=== PATIENT | female | born 1970 | race Caucasian/White ===

== ENCOUNTER → 2018-03-17 | Outpatient (CLI) | payer BC ==
--- NOTE | 2018-03-22 08:53 | EEG ---
ELECTROENCEPHALOGRAM REPORT VIDEO ELECTRONYSTAGMOGRAPHIC REPORT: AGE: 47 VNG INDICATIONS: 47-year-old female with vertigo and other dizziness onset December 2017, sudden and improving. She has dizziness spells on a daily basis and generally lasting 30-60 seconds at a time without warning. All of the different positions can trigger the vertigo. The patient denies any hearing loss, but has pressure in the right ear. No tinnitus. Dizziness can be associated with lightheadedness, pressure in the head, nausea and blurred vision. ENG FINDINGS: SPONTANEOUS NYSTAGMUS: SACCADES: Saccades shows intact peak velocities, accuracies and latencies. GAZE TEST: Gaze with fixation shows no nystagmus in any of the directions of gaze including centrally with vision denied. SINUSOIDAL TRACKING: Tracking shows no break-ups at faster speed and some break-ups that source e felt to be outpatient looking around artifact. OKN TEST: @@ NICO-HALLPIKE TEST: Nico-Hallpike maneuvers are not done because patient refused it. POSITION TEST: Static position testing in 6 different positions with the eyes open and then with vision denied shows no significant nystagmus. CALORIC TEST: Caloric testing also not done because the patient refused it. The heating and cooling technician notes: The patient did not want to continue with testing because she was having severe anxiety and claustrophobia just from the goggles being on. Several breaks were taken during testing for same reason. IMPRESSION: This is a limited VNG without calorics or [place]-Hallpike maneuvers due to the patient's anxiety as noted above. Therefore, vestibular apparatus not fully tested. No significant nystagmus was noted on gaze or position testing. There were no central nervous system features. Otherwise unremarkable VNG study. Clinical correlation is advised. MMODL / IJN: [id number] /
== END | disposition home or self-care (01) ==
LOC: NEUROMAIN 06:34
PROVIDERS: ATTEND Otolaryngology
DX: R42 Dizziness and giddiness (principal)
CPT/HCPCS: 92540

== ENCOUNTER → 2020-02-03 | Outpatient (CLI) | payer BC ==
--- NOTE | 2020-02-08 11:46 | MM ---
Reason for exam: screening (asymptomatic). Last mammogram was performed 2 years and 10 months ago. Physical Findings: A clinical breast exam by your physician is recommended on an annual basis and results should be correlated with mammographic findings. MG Screening Mammo w CAD Bilateral CC and MLO view(s) were taken. Prior study comparison: April 15, 2017, mammogram, performed at [facility]. March 17, 2016, mammogram, performed at [facility]. There are scattered fibroglandular densities. There is no discrete abnormality. No significant changes when compared with prior studies. ASSESSMENT: Negative, BI-RAD 1 RECOMMENDATION: Routine screening mammogram of both breasts in 1 year.
== END | disposition home or self-care (01) ==
LOC: RADMAMWWP 16:34
PROVIDERS: ATTEND Family Medicine
DX: Z12.31 Encounter for screening mammogram for malignant neoplasm of breast (principal)
CPT/HCPCS: 77067

== ENCOUNTER → 2020-10-17 | Outpatient (CLI) | payer BC ==
--- NOTE | 2020-10-17 09:45 | XR ---
EXAMINATION TYPE: XR ankle complete 3 views LT, XR foot complete 3 views LT, XR knee complete 3 views LT DATE OF EXAM: 10/17/2020 COMPARISON: NONE HISTORY: 50-year-old female poor range of motion. Pain since June 2020. M25.562, M72.2 FINDINGS: Left knee: Mild to moderate degenerative spurring medial compartment and mild within the patellofemoral compartm ent. Small knee joint effusion. Extensor mechanism appears intact. No acute fracture, subluxation, o r dislocation seen. Left ankle: Ankle mortise is congruent with preservation of the distal tibiofibular overlap. Talar dome is intact . Small delineation to the Achilles tendon. Small posterior and plantar heel spurs. Talar dome is int act. No acute fracture, subluxation, or dislocation. Left foot: Mild hallux valgus with bunion. Incidental bipartite tibial sesamoid. Very mild degenerative spurring at the first TMT joint. No acute fracture, subluxation, or dislocation. IMPRESSION: 1. Left knee: [id number] degenerative spurring medial compartment and mild within the patellofe moral compartment. There is a small knee joint effusion. No acute osseous abnormality seen. If pain p ersists, consider MRI. 2. Left ankle: Small posterior and plantar heel spurs. No acute osseous abnormality seen. 3. Left foot: Mild hallux valgus with early bunion. No acute osseous abnormality seen.
== END | disposition home or self-care (01) ==
LOC: RADXRMAIN 08:27
PROVIDERS: ATTEND Family Medicine
DX: M25.462 Effusion, left knee (principal); M72.2 Plantar fascial fibromatosis; M77.32 Calcaneal spur, left foot; M21.612 Bunion of left foot

== ENCOUNTER → 2021-08-29 | Outpatient (CLI) | payer BC ==
--- NOTE | 2021-08-30 07:43 | MM ---
Reason for Exam: Screening (asymptomatic). Last mammogram was performed 1 year(s) and 7 month(s) ago. Patient History: Menarche at age 12. Postmenopausal. Risk Values: Nan 5 year model risk: 0.7%. NCI Lifetime model risk: 6.4%. Prior Study Comparison: 03/17/2016 Screening Mammogram, [facility]. 04/15/2017 Screening Mammogram, [facility]. 02/03/2020 Bilateral Screening Mammogram, [facility]. Tissue Density: There are scattered fibroglandular densities. Findings: Analyzed By CAD. Stable asymmetric prominent tissue outer aspect left breast. Benign-appearing bilateral axillary lymph nodes are redemonstrated. There is no suspicious group of microcalcifications or new suspicious mass in either breast. Overall Assessment: Benign, BI-RAD 2 Management: Screening Mammogram of both breasts in 1 year. A clinical breast exam by your physician is recommended on an annual basis and results should be correlated with mammographic findings. Electronically signed and approved by: Luis Trammell M.D.
== END | disposition home or self-care (01) ==
LOC: RADMAMWWP 07:15
PROVIDERS: ATTEND Family Medicine
DX: Z12.39 Encounter for other screening for malignant neoplasm of breast (principal)
CPT/HCPCS: 77063; 77067

== ENCOUNTER 2021-09-06 11:36 | Day surgery (SDC) | payer BC ==
[~2021-09-06 11:36] MED LIST: LACTATED RINGERS 1,000 ML IV SCH
[2021-09-06 12:38] VITALS: TEMP 98.1
[2021-09-06] MEDS ORDERED: PROPOFOL 10 MG/ML 20 ML VIAL IV ONE (14:11)
--- NOTE | 2021-09-06 14:33 | P.PCN ---
Date of Procedure: 09/06/21 Procedure(s) Performed: BRIEF HISTORY: Patient is a 51-year-old pleasant white female scheduled for an elective colonoscopy as a part of screening for colorectal neoplasia. PROCEDURE PERFORMED: Colonoscopy. PREOPERATIVE DIAGNOSIS: Screening for colon cancer. IV sedation per Anesthesia. PROCEDURE: After informed consent was obtained, the patient, was brought into the endoscopy unit. IV sedation was administered by Anesthesia under continuous monitoring. Digital rectal examination was normal. Initially the Olympus CF-160 flexible video colonoscope was then inserted in the rectum, gradually advanced into the cecum without any difficulty. Careful examination was performed as the scope was gradually being withdrawn. Ileocecal valve and the appendiceal orifice were visualized and appeared normal. Prep was excellent. Mucosa of the cecum, ascending colon, transverse colon, descending colon, sigmoid colon, and rectum appeared normal. Retroflexion was performed in the rectum and no lesions were seen. The patient tolerated the procedure well. IMPRESSION: Normal-appearing colon from rectum to cecum with no evidence of colorectal neoplasia. RECOMMENDATIONS: Findings of this examination were discussed with the patient is well as her family. She was advised to have a repeat screening colonoscopy in 10 years.
[2021-09-06 15:06] VITALS: BP 122/66; PULSE 68; RESP 18
== END 2021-09-06 15:30 | disposition home or self-care (01) ==
LOC: ORWHC2ENDO 11:36
PROVIDERS: ATTEND Internal Medicine Gastroenterology
DX: Z12.11 Encounter for screening for malignant neoplasm of colon (principal); F40.240 Claustrophobia; D68.0 Von Willebrand disease
CPT/HCPCS: 45378; J2704

== ENCOUNTER → 2022-09-04 | Outpatient (CLI) | payer BC ==
--- NOTE | 2022-09-05 21:46 | MM ---
Reason for Exam: Screening (asymptomatic). Last screening mammogram was performed 12 month(s) ago. Patient History: Menarche at age 12. Patient has no children. Postmenopausal. Risk Values: Nan 5 year model risk: 1.2%. NCI Lifetime model risk: 9.6%. Prior Study Comparison: 04/15/2017 Screening Mammogram, [facility]. 02/03/2020 Bilateral Screening Mammogram, [facility]. 08/29/2021 Bilateral MG 3D screening mammo w/cad, [facility]. Tissue Density: There are scattered fibroglandular densities. Findings: Analyzed By CAD. There is no suspicious group of microcalcifications or new suspicious mass in either breast. Overall Assessment: Negative, BI-RAD 1 Management: Screening Mammogram of both breasts in 1 year. . Patient should continue monthly self-breast exams. A clinical breast exam by your physician is recommended on an annual basis. This exam should not preclude additional follow-up of suspicious palpable abnormalities. Note on Nan scores and lifetime risk: 1. A Nan score greater than 3% is considered moderate risk. If this is the case, consider specialist referral to assess eligibility for a risk reducing agent. 2. If overall lifetime risk for the development of breast cancer is 20% or higher, the patient may qualify for future screening with alternating mammogram and breast MRI. Electronically signed and approved by: Aileen Wright M.D. Radiologist
== END | disposition home or self-care (01) ==
LOC: RADMAMWWP 14:22
PROVIDERS: ATTEND Family Medicine
DX: Z12.31 Encounter for screening mammogram for malignant neoplasm of breast (principal); Z78.0 Asymptomatic menopausal state
CPT/HCPCS: 77063; 77067

== ENCOUNTER → 2023-11-10 | Outpatient (CLI) | payer BC ==
--- NOTE | 2023-11-11 22:35 | MM ---
Reason for Exam: Screening (asymptomatic). Last mammogram was performed 1 year(s) and 2 month(s) ago. Patient History: Menarche at age 12. Patient has no children. Postmenopausal. Mother had breast cancer, age 75. Risk Values: Nan 5 year model risk: 2.2%. NCI Lifetime model risk: 16.1%. Prior Study Comparison: 02/03/2020 Bilateral Screening Mammogram, [facility]. 08/29/2021 Bilateral MG 3D screening mammo w/cad, [facility]. 09/04/2022 Bilateral MG 3D screening mammo w/cad, [facility]. Tissue Density: The breasts are almost entirely fatty. Findings: Analyzed By CAD. The pattern is symmetrical. Small focal asymmetry within the right craniocaudal view was present 2019 comparison. No suspicious groups of microcalcifications, spiculated or lobular masses, architectural distortion or other secondary signs of malignancy are mammographically apparent. Overall Assessment: Benign, BI-RAD 2 Management: Screening Mammogram of both breasts in 1 year. A negative mammogram report should not preclude additional follow up of suspicious palpable abnormalities. Patient should continue monthly self breast exam. A clinical breast exam by your physician is recommended on an annual basis and results should be correlated with mammographic findings. Note on Nan scores and lifetime risk: 1. A Nan score greater than 3% is considered moderate risk. If this is the case, consider specialist referral to assess eligibility for a risk reducing agent. 2. If overall lifetime risk for the development of breast cancer is 20% or higher, the patient may qualify for future screening with alternating mammogram and breast MRI. [facility], , 11/11/2023 10:32 PM. Electronically signed and approved by: Joseph Singleton D.O. Radiologis
== END | disposition home or self-care (01) ==
LOC: RADMAMWWP 16:38
PROVIDERS: ATTEND Family Medicine
CPT/HCPCS: 77063; 77067